=== PATIENT | female | born 1985 | race Caucasian/White ===

== ENCOUNTER 2023-07-31 08:04 | Emergency (ER) | payer BC ==
[2023-07-31 08:11] VITALS: BP 110/70; PULSE 72; RESP 18; TEMP 98.8; BMI 19.5
[2023-07-31 08:58] LABS: HEMATOCRIT 41.6 % (32.4-45.2); HEMOGLOBIN 13.6 G/dL (10.7-15.3); MCH 29.9 pg (25.7-33.7); MCHC 32.8 g/dl (32.0-36.0); MEAN CELL VOLUME 91.3 fl (80-96); MEAN PLT VOLUME 8.5 fl (7.5-11.1); PLATELET COUNT 211.7 10^3/uL (134-434); RBC 4.56 10^6/uL (3.60-5.2); RDW 13.6 % (11.6-15.6); WHITE BLOOD COUNT 4.7 10^3/uL (4.0-10.8)
[2023-07-31 10:30] LABS: EPITHELIAL CELLS MODERATE /hpf
== END 2023-07-31 10:04 | disposition left against medical advice (07) ==
LOC: FER 08:04
DX: N93.9 Abnormal uterine and vaginal bleeding, unspecified (principal); Z3A.01 Less than 8 weeks gestation of pregnancy
CPT/HCPCS: 36415; 76817-TC; 81003; 81015; 85027; 86850; 86900; 86901; 87086; 99284-25